=== PATIENT | female | born 1995 | race Caucasian/White ===

== ENCOUNTER 2021-02-08 20:39 | Emergency (ER) | payer OTHER ==
[~2021-02-08 20:39] MED LIST: CIPRO500 MG PO; IBUPROFEN800 MG PO; MEDROL 4MG DOSEP4 MG PO; VENTOLIN HFA IN18 GM INH; ZPAK PO
== END 2021-02-08 23:30 | disposition home or self-care (01) ==
LOC: FER 20:39
DX: S63.92XA Sprain of unspecified part of left wrist and hand, initial encounter (principal); S93.602A Unspecified sprain of left foot, initial encounter; S90.512A Abrasion, left ankle, initial encounter; M25.512 Pain in left shoulder; F17.210 Nicotine dependence, cigarettes, uncomplicated; Z23 Encounter for immunization; V86.96XA Unspecified occupant of dirt bike or motor/cross bike injured in nontraffic accident, initial encounter; Y92.410 Unspecified street and highway as the place of occurrence of the external cause
CPT/HCPCS: 73130; 73610; 73630; 90471; 90715